=== PATIENT | female | born 1990 | race Caucasian/White ===

== ENCOUNTER 2016-04-20 17:39 | Emergency (ER) | payer MEDICAID, OTHER ==
[~2016-04-20] VITALS: Wt 54.5 kg
[2016-04-20] MEDS ORDERED: DOXY100T20 PO (18:47)
[2016-04-20] MEDS ORDERED: PRED20TA PO (18:47)
[2016-04-20] MEDS ORDERED: IBUP-1542 PO (18:47)
--- NOTE | 2016-04-20 18:50 | ERD ---
ER Documentation Chief Complaint Date/Time DATE: 04/20/16 TIME: 18:48 Chief Complaint possible abscess on head. pt. is deaf. HPI This 26-year-old female presents with the parents for a painful lump in the back of her neck for last 3 weeks or so. Denies any fevers, cough, shortness breath or chest pain. Denies any noticeable skin lesions. She denies any other swelling in other parts of the body. ROS All systems reviewed and are negative except as per history of present illness. Medications Home Meds Active Scripts Ibuprofen* (Motrin*) 600 Mg Tab, 600 MG PO Q6, #15 TAB Prov:OLAMIDE HO MD 04/20/16 Prednisone* (Prednisone*) 20 Mg Tab, 40 MG PO DAILY for 5 Days, TAB Prov:OLAMIDE HO MD 04/20/16 Doxycycline Hyclate* (Doxycycline Hyclate*) 100 Mg Tablet.dr, 100 MG PO BID for 10 Days, TAB Prov:OLAMIDE HO MD 04/20/16 Allergies Allergies: Coded Allergies: No Known Allergy (Verified Allergy, Unknown, 06/21/08) PMhx/Soc Medical and Surgical Hx: pt denies Surgical Hx Hx Miscellaneous Medical Probl: Yes (mute/deaf) Physical Exam Vitals Vital Signs Date Time Temp Pulse Resp B/P Pulse Ox O2 Delivery O2 Flow Rate FiO2 04/20/16 17:47 97.5 73 20 110/57 100 Physical Exam Const: [] Alert, [id number]. Head: Atraumatic Eyes: Normal Conjunctiva ENT: Normal External Ears, Nose and Mouth.. There is approximately 1 cm tender mobile lesion on the right occipital or posterior neck. There is no warmth, induration or fluctuance appreciated. Neck: Full range of motion..~ No meningismus. Resp: Clear to auscultation bilaterally Cardio: Regular rate and rhythm, no murmurs Abd: Soft, non tender, non distended. Normal bowel sounds Skin: No petechiae or rashes Back: No midline or flank tenderness Ext: No cyanosis, or edema Neur: Awake and alert Psych: Normal Mood and Affect Procedures/MDM This patient has signs and symptoms of likely reactive lymph node in the back of the neck. Signs and symptoms do not suggest an abscess. There is no other appreciable lymphadenitis. There is no other signs or symptoms of systemic illness. And bhanu patient will be treated for possible local infection with doxycycline, short course of prednisone and ibuprofen but parents are advised to follow-up with ENT or primary doctor for persistent symptoms despite treatment for further evaluation. The patient was stable with no new complaints during the ER course. Clinically, there is no current evidence to suggest meningitis, sepsis, acute abdomen, pneumonia, acute coronary syndrome, pulmonary embolism, or any other emergent condition appearing to require further evaluation or hospitalization. The patient should certainly return for any new or worsening symptoms per the aftercare instructions. They should otherwise follow-up with her primary care doctor for reevaluation this week. Departure Diagnosis: Primary Impression: Swollen lymph nodes Condition: Stable Patient Instructions: Lymphangitis Referrals: ROSEY PATHAK MD, STEPHEN H MD Additional Instructions: See primary doctor or ENT specialist for persistent symptoms despite treatment. Recheck otherwise for new or worsening symptoms. OLAMIDE HO MD Apr 20, 2016 18:49
== END 2016-04-20 18:56 | disposition home or self-care (01) ==
LOC: FTE 17:39
DX: R59.9 Enlarged lymph nodes, unspecified (principal)
CPT/HCPCS: 99284

== ENCOUNTER 2017-01-17 18:47 | Emergency (ER) | payer OTHER ==
[~2017-01-17] VITALS: Ht 162.6 cm; Wt 60.5 kg
[~2017-01-17 18:47] MED LIST: DOXY100T20 PO; IBUP-1542 PO; PRED20TA PO
[2017-01-17 19:25] VITALS: Ht 162.6 cm; Wt 60.5 kg
--- NOTE | 2017-01-17 22:50 | ERD ---
ER Documentation Chief Complaint Date/Time DATE: 01/17/17 TIME: 22:49 Chief Complaint C/O RT PELVIC PAIN TODAY. NO N/V PT. IS DEAF HPI 26-year-old female presents to emergency department for complaints of right lower pelvic right lower abdominal pain that has been on and off for the last 3 weeks, worse today. Patient has a history of ovarian cyst removal on the right ovary a few years ago, started to have the pain again the last 3 weeks, worse today. Patient described the pain is sharp pain, 6/10 scale, not better or worse with anything. Patient denies any hematuria or dysuria. Patient denies any fever or chills. Patient denies any flank pain. ROS All systems reviewed and are negative except as per history of present illness. Medications Home Meds Active Scripts Tramadol HCl (Tramadol HCl) 50 Mg Tablet, 50 MG PO Q6 Y for SEVERE PAIN LEVEL 7- 10, #20 TAB Prov:NEWTON CLAROS NP 01/18/17 Phenazopyridine Hcl* (Pyridium*) 200 Mg Tab, 200 MG PO TID Y for URINARY PAIN, # 6 TAB Prov:NEWTON CLAROS NP 01/18/17 Cephalexin* (Keflex*) 500 Mg Capsule, 500 MG PO QID for 10 Days, CAP Prov:NEWTON CLAROS NP 01/18/17 Ibuprofen* (Motrin*) 600 Mg Tab, 600 MG PO Q6, #15 TAB Prov:OLAMIDE HO MD 04/20/16 Prednisone* (Prednisone*) 20 Mg Tab, 40 MG PO DAILY for 5 Days, TAB Prov:OLAMIDE HO MD 04/20/16 Doxycycline Hyclate* (Doxycycline Hyclate*) 100 Mg Tablet.dr, 100 MG PO BID for 10 Days, TAB Prov:OLAMIDE HO MD 04/20/16 Allergies Allergies: Coded Allergies: No Known Allergy (Verified , 01/17/17) PMhx/Soc Hx Miscellaneous Medical Probl: Yes (mute/deaf, ovarian cyst removed) Hx Alcohol Use: No Hx Substance Use: No Hx Tobacco Use: No Smoking Status: Never smoker FmHx Family History: No coronary disease, No diabetes, No other Physical Exam Vitals Vital Signs Date Time Temp Pulse Resp B/P Pulse Ox O2 Delivery O2 Flow Rate FiO2 01/17/17 19:25 98.6 75 18 122/65 99 Physical Exam GENERAL: The patient is well developed and appropriate for usual state of health, in no apparent distress. CHEST: Clear to auscultation bilaterally. There are no rales, wheezes or rhonchi. HEART: Regular rate and rhythm. No murmurs, clicks, rubs or gallops. No S3 or S4. ABDOMEN: Soft, nontender and nondistended. Good bowel sounds. No rebound or guarding. No gross peritonitis. No gross organomegaly or masses. No Subramanian sign or McBurney point tenderness. BACK: No midline or flank tenderness. EXTREMITIES: Equal pulses bilaterally. There is no peripheral clubbing, cyanosis or edema. No focal swelling or erythema. Full range of motion. Grossly neurovascularly intact. NEURO: Alert and oriented. Cranial nerves 2-12 intact. Motor strength in all 4 extremities with 5/5 strength. Sensation grossly intact. Normal speech and gait. SKIN: There is no apparent rash or petechia. The skin is warm and dry. HEMATOLOGIC AND LYMPHATIC: There is no evidence of excessive bruising or lymphedema. No gross cervical, axillary, or inguinal lymphadenopathy. Result Diagram: 01/17/178 01/17/172317 Results 24 hrs Laboratory Tests Test 01/17/17 23:12 01/17/17 23:18 01/18/17 01:25 Urine Color YELLOW Urine Clarity CLOUDY Urine pH 8.0 Urine Specific [place] 1.021 Urine Ketones NEGATIVEmg/dL Urine Nitrite NEGATIVEmg/dL Urine Bilirubin NEGATIVEmg/dL Urine Urobilinogen NEGATIVEmg/dL Urine Leukocyte Esterase TRACELeu/ul Urine Microscopic RBC 2/HPF Urine Microscopic WBC 3/HPF Urine Amorphous Crystals FEW/HPF Urine Bacteria FEW/HPF Urine Mucus FEW/HPF Urine Hemoglobin NEGATIVEmg/dL Urine Glucose NEGATIVEmg/dL Urine Total Protein 1+mg/dl White Blood Count 7.010^3/ul Red Blood Count 4.7210^6/ul Hemoglobin 12.7g/dl Hematocrit 39.6% Mean Corpuscular Volume 83.9fl Mean Corpuscular Hemoglobin 26.9pg Mean Corpuscular Hemoglobin Concent 32.1g/dl Red Cell Distribution Width 13.3% Platelet Count 00363^3/UL Mean Platelet Volume 9.7fl Neutrophils % 52.5% Lymphocytes % 35.4% Monocytes % 7.3% Eosinophils % 4.3% Basophils % 0.4% Nucleated Red Blood Cells % 0.0/100WBC Neutrophils # 3.710^3/ul Lymphocytes # 2.510^3/ul Monocytes # 0.510^3/ul Eosinophils # 0.310^3/ul Basophils # 0.010^3/ul Nucleated Red Blood Cells # 0.010^3/ul Sodium Level 137mmol/L Potassium Level 3.6mmol/L Chloride Level 101mmol/L Carbon Dioxide Level 28mmol/L Anion Gap 12 Blood Urea Nitrogen 7mg/dl Creatinine 0.79mg/dl Glucose Level 59mg/dl Calcium Level 9.2mg/dl Total Bilirubin 0.4mg/dl Direct Bilirubin 0.00mg/dl Indirect Bilirubin 0.4mg/dl Aspartate Amino Transf (AST/SGOT) 22IU/L Alanine Aminotransferase (ALT/SGPT) 24IU/L Alkaline Phosphatase 56IU/L Total Protein 7.9g/dl Albumin 4.3g/dl Globulin 3.60g/dl Albumin/Globulin Ratio 1.19 Lipase 177U/L Bedside Glucose 78mg/dL Procedures/MDM Medical Decision Making: Patient's pelvic pain nonspecific at this time, can be symptoms of early urinary tract infection. No symptoms of any ovarian torsion, no ovarian cyst noted, CT scan of abdomen and pelvis did not show any abnormality. There is low suspicion for abdominal emergencies at this time. Patients abdominal exam is normal at this time. Patients radiology exam does not show any abdominal emergencies at this time. There is low suspicion for appendicitis, cholecystitis, abdominal aortic aneurysms or peritonitis at this time. There is low suspicion for sepsis. Patient appears well and is hemodynamically stable. blood Sugar was low, was given food here in the er. Disposition: Home. Condition: Stable Prescription Keflex, Pyridium, tramadol Instructions: Patient is advised to take medications as prescribed. Patient is advised to rest, increase fluid intake and do brat diet for next 1-2 days and progress as tolerated. Patient is advised that if symptoms are worse, severe abdominal pain, uncontrolled vomiting, high fever, severe flank pain, worst signs and symptoms, to return to the emergency department immediately. Otherwise, patient can follow up with primary care doctor in 5-7 days. Disclaimer: Inadvertent spelling and grammatical errors are likely due to EHR/ dictation software use and do not reflect on the overall quality of patient care. Also, please note that the electronic time recorded on this note does not necessarily reflect the actual time of the patient encounter. Departure Diagnosis: Primary Impression: Pelvic pain Additional Impressions: UTI (urinary tract infection) Urinary tract infection type: acute cystitis Hematuria presence: without hematuria Qualified Code: N30.00 - Acute cystitis without hematuria Hypoglycemia Condition: Stable Patient Instructions: Pelvic Pain, Unknown Cause, Understanding Urinary Tract Infections (UTIs) Additional Instructions: Patient is advised to take medications as prescribed. Patient is advised to rest , increase fluid intake and do brat diet for next 1-2 days and progress as tolerated. Patient is advised that if symptoms are worse, severe abdominal pain , uncontrolled vomiting, high fever, severe flank pain, worst signs and symptoms , to return to the emergency department immediately. Otherwise, patient can follow up with primary care doctor in 5-7 days. NEWTON CLAROS NP Jan 17, 2017 22:50
--- NOTE | 2017-01-17 23:22 | RADRPT ---
PROCEDURE: US Pelvis. CLINICAL INDICATION: Pelvic and abdominal pain TECHNIQUE: Multiple sonographic images of the pelvis were obtained utilizing a transabdominal and endovaginal technique. The images were reviewed on a PACS workstation. COMPARISON: None available FINDINGS: Uterus: Normal in size, contour and echogenicity with no evidence for myometrial masses. Size is est imated at 7.9 x 6.3 x 3.9 cm. Cervix: No abnormalities of significance are seen. Endometrium: Normal in thickness for the patient's age; 10.8 mm. Right ovary / adnexa: Normal in size estimated at 3.9 x 3.7 x 2.8 cm. No evidence for masses, norm al blood flow on Doppler interrogation. Left ovary/adnexa: Normal in size estimated at 3.2 x 2.4 x 1.6 cm. No evidence for solid masses, no rmal blood flow on Doppler interrogation. Cul-de-sac: No evidence of free fluid. RPTAT:HJJR IMPRESSION: Unremarkable pelvic ultrasound. Physician Cade Date Time Electronically viewed and signed by Physician Cade on 01/17/2017 23:21 /
[2017-01-17 23:39] LABS: BASOPHILS % 0.4 % (0.0-2.0); EOSINOPHILS # 0.3 10^3/ul (0.0-0.5); EOSINOPHILS % 4.3 % (0.0-7.0); HEMATOCRIT 39.6 % (37.0-47.0); HEMOGLOBIN 12.7 g/dl (12.0-16.0); LYMPHOCYTES # 2.5 10^3/ul (0.8-2.9); LYMPHOCYTES % 35.4 % (15.0-51.0); MEAN CORPUSCULAR HEMOGLOBIN 26.9 pg (29.0-33.0); MEAN CORPUSCULAR HGB CONC 32.1 g/dl (32.0-37.0); MEAN CORPUSCULAR VOLUME 83.9 fl (82.0-101.0); MEAN PLATELET VOLUME 9.7 fl (7.4-10.4); MONOCYTE # 0.5 10^3/ul (0.3-0.9); MONOCYTES % 7.3 % (0.0-11.0); NEUTROPHIL # 3.7 10^3/ul (1.6-7.5); NEUTROPHILS % 52.5 % (39.0-77.0); PLATELET COUNT 253 10^3/UL (140-415); RED BLOOD COUNT 4.72 10^6/ul (4.20-5.40); RED CELL DISTRIBUTION WIDTH 13.3 % (11.5-14.5)
[2017-01-18 00:01] LABS: ALBUMIN 4.3 g/dl (3.3-4.9); ALBUMIN/GLOBULIN RATIO 1.19; BILIRUBIN,INDIRECT 0.4 mg/dl (0-1.1); BILIRUBIN,TOTAL 0.4 mg/dl (0.2-1.3); CALCIUM 9.2 mg/dl (8.4-10.2); CREATININE 0.79 mg/dl (0.44-1.00); POTASSIUM 3.6 mmol/L (3.5-5.1); TOTAL PROTEIN 7.9 g/dl (6.1-8.1)
[2017-01-18 00:04] LABS: ADD UMIC YES; UR AMORPHOUS CRYSTAL FEW /HPF (NONE SEEN); UR ASCORBIC ACID 40 mg/dL (NEGATIVE); UR BACTERIA FEW /HPF (NONE SEEN); UR BILIRUBIN (Dip) NEGATIVE (NEGATIVE); UR BLOOD (Dip) NEGATIVE (NEGATIVE); UR CLARITY CLOUDY (CLEAR); UR COLOR YELLOW (YELLOW); UR GLUCOSE (Dip) NEGATIVE (NEGATIVE); UR KETONES (Dip) NEGATIVE (NEGATIVE); UR LEUKOCYTE ESTERASE (Dip) TRACE Leu/ul (NEGATIVE); UR MUCUS FEW /HPF (NONE SEEN); UR NITRITE (Dip) NEGATIVE (NEGATIVE); UR RBC 2 /HPF (0-5); UR SPECIFIC GRAVITY (Dip) 1.021 (1.003-1.030); UR TOTAL PROTEIN (Dip) 1+ mg/dl (NEGATIVE); UR UROBILINOGEN (Dip) NEGATIVE (NEGATIVE)
--- NOTE | 2017-01-18 00:22 | RADRPT ---
PROCEDURE: CT ABDOMEN/PELVIS WITHOUT CONTRAST CLINICAL INDICATION: 26-year-old female with abdominal pain. TECHNIQUE: The study was performed utilizing a [employer] VCT 64-slice CT scanner. Direct axia l sections were obtained through the abdomen and pelvis without the use of intravenous contrast mate rial. Sagittal and coronal reformations were obtained. One or more of the following dose reduction t echniques were utilized: automated exposure control, adjustment of the mA and/or kV according to pat ient's size and/or the use of iterative reconstruction technique. The images were reviewed on a PAC S workstation. CTD/vol = 6.5 mGy; Total Exam DLP = 362.3 mGy-cm. COMPARISON: CT abdomen/pelvis June 20, 2008. FINDINGS: The lung bases are unremarkable. There is no evidence for significant pleural effusion. The liver has a normal size and contour without focal areas of abnormal density. No intrahepatic nor extrahepa tic biliary ductal dilatation is seen. The gallbladder is contracted but without evidence for calcif ied stones or significant wall thickening. The pancreas is without areas of abnormal attenuation. T he spleen is identified and has a normal size without abnormal density. The adrenal glands are unrem arkable. The kidneys are without abnormal density. No hydroureteronephrosis nor nephroureterolithias is is evident. The urinary bladder contains a small volume of urine with a mildly thickened wall raul suring up to 11 mm. There is a mild hiatal hernia present. There is mild retained stool and air with in the colon without obstruction. The appendix is diminutive and is without abnormal thickening or surrounding inflammatory reaction. The uterus is anteflexed. There is minimal pelvic free fluid. The aortoiliac vessels are without aneurysmal dilatation. The osseous structures are intact. IMPRESSION: 1. No CT evidence for obstructive uropathy or renal calculi. 2. Mild retained stool within the colon without obstruction. 3. No CT evidence for appendicitis. 4. Mildly thickened bladder wall which may be due to a cystitis. Clinical correlation is necessary. 5. Minimal pelvic free fluid. .Dallin Tomas MD, MD Date Time Electronically viewed and signed by .Dallin Tomas MD, on 01/18/2017 00:21 .M/
[2017-01-18] MEDS ORDERED: CEPH-443 PO (00:55)
[2017-01-18] MEDS ORDERED: TRAM50TA2 PO (00:55)
[2017-01-18] MEDS ORDERED: PHEN-538 PO (00:55)
== END 2017-01-18 01:30 | disposition home or self-care (01) ==
LOC: FTE 18:47
DX: R10.2 Pelvic and perineal pain (principal); N30.00 Acute cystitis without hematuria; E16.2 Hypoglycemia, unspecified
CPT/HCPCS: 36415; 74176; 76830; 76856; 80053; 81001; 82962; 83690; 85025; Z7502

== ENCOUNTER 2017-12-03 13:51 | Emergency (ER) | END 2017-12-03 17:47 | disposition home or self-care (01) ==